=== PATIENT | female | born 1995 | race Caucasian/White ===

== ENCOUNTER 2017-06-15 21:03 | Emergency (ER) | payer OTHER ==
[~2017-06-15] VITALS: Ht 167.6 cm; Wt 70.3 kg
[2017-06-15] MEDS ORDERED: PREDNISONE 20 M20 MG PO (21:21)
[2017-06-15] MEDS ORDERED: PEPCID20 MG PO (21:21)
== END 2017-06-15 21:37 | disposition home or self-care (01) ==
LOC: ER 21:03
DX: T78.40XA Allergy, unspecified, initial encounter (principal); L50.9 Urticaria, unspecified; X58.XXXA Exposure to other specified factors, initial encounter